=== PATIENT | male | born 1950 | race Caucasian/White ===

== ENCOUNTER 2023-10-30 11:37 | Outpatient (OUT) | payer SELFPAY | END 2023-10-30 11:38 | disposition home or self-care (01) | LOC: PST 11:37 | PROVIDERS: PCP Family Medicine; Visit Provider Otolaryngology | DX: Z01.818 Encounter for other preprocedural examination (principal); K13.70 Unspecified lesions of oral mucosa ==

== ENCOUNTER 2023-11-04 11:28 | Day surgery (SDC) | payer MEDICARE, SELFPAY ==
--- NOTE | 2023-11-04 | OP_ITS ---
OPERATION DATE: 11/04/2023 SURGEON: Dixie Upton M.D. PREOPERATIVE DIAGNOSIS: Left lower lip/oral vestibule lesion. POSTOPERATIVE DIAGNOSIS: Left lower lip/oral vestibule lesion. PROCEDURE: Removal of left oral lip/vestibule lesion with primary closure. ANESTHESIA: Lidocaine 1% with 1:100,000 epinephrine. FINDINGS: A 3 mm nodular lesion on the mucosal surface of the left lower lip. COMPLICATIONS: None. INDICATIONS: This 73-year-old man presented with a bothersome exophytic left lower lip lesions. PROCEDURE: Patient identified in the holding area and taken back to the OR where he was placed in a supine position. Lidocaine 1% with 1:100,000 epinephrine was infiltrated around the base of the patient?s lower lip lesion. After waiting adequate time for anesthesia, the lip was prepped with Betadine and then a 15 blade knife was used to make an elliptical incision around the base of the lesion. It was removed with a sharp scissor. The incision was then closed with two interrupted vertical mattress sutures using 5-0 Vicryl suture material, and the patient was discharged home in good condition. LOTUS
[2023-11-04 11:40] VITALS: BP 173/98; PULSE 76; O2SAT 99; BMI 33.9
[2023-11-04 14:50] VITALS: BP 208/87; BP 212/80; PULSE 60; PULSE 67; O2SAT 100; O2SAT 98
[2023-11-04] MEDS: LIDOCAINE HCL 1%-EPINEPHRINE 1:100,000 20 ML MDV INJ (14:56)
== END 2023-11-04 15:20 | disposition home or self-care (01) ==
PROVIDERS: PCP Family Medicine; Visit Provider Otolaryngology
PROC: (CPT 11440; principal; 2023-11-04 12:15)
DX: D10.0 Benign neoplasm of lip (principal); L83 Acanthosis nigricans; R20.8 Other disturbances of skin sensation
CPT/HCPCS: 11440; 88305